=== PATIENT | female | born 1995 | race Caucasian/White ===

== ENCOUNTER → 2021-02-02 16:06 | Outpatient (CLI) | payer OTHER, SELFPAY | PROVIDERS: PCP Registered Nurse Diabetes Educator; Visit Provider Obstetrics & Gynecology | DX: N76.0 Acute vaginitis (principal); N89.8 Other specified noninflammatory disorders of vagina | CPT/HCPCS: 87070; 87075; 87205 ==

== ENCOUNTER → 2021-10-19 16:26 | Outpatient (CLI) | payer OTHER, SELFPAY ==
[2021-10-19 18:52] LABS: TSH w/ Reflex to FT4 0.86 uIU/mL (0.47-4.68)
[2021-10-19 19:11] LABS: Vitamin B12 Reflex MMA if <400 956 pg/mL (239-931)
== END ==
PROVIDERS: PCP Family Medicine; Referring Provider Family Medicine; Visit Provider Family Medicine
DX: F33.1 Major depressive disorder, recurrent, moderate (principal); F33.9 Major depressive disorder, recurrent, unspecified; F41.1 Generalized anxiety disorder
CPT/HCPCS: 36415; 82306; 82607; 84443